=== PATIENT | female | born 1945 | race Caucasian/White ===

== ENCOUNTER 2016-10-13 15:09 | Emergency (ER) | payer MEDICARE, OTHER ==
[~2016-10-13] VITALS: Ht 167.6 cm; Wt 77.3 kg
[~2016-10-13 15:09] MED LIST: CYMBALTA 60MG60 MG; KLONOPIN 1MG1 MG; TRAVATAN Z 2.52.5 ML; TRUSOPT 5 ML5 ML; VITAMIN B121000 MC2; VITAMIN D5000 IU PO; ZITHROMAX Z PA250 MG PO
[2016-10-13 15:11] VITALS: BP 138/65; TEMP 98.3
[2016-10-13 16:15] LABS: PH 5 (5-8); SQUAMOUS EPITHELIAL 0-2 /hpf; URINE APPEARANCE Clear; URINE BACTERIA None Seen /hpf; URINE BILIRUBIN Negative (NEGATIVE); URINE BLOOD Negative (NEGATIVE); URINE COLOR Yellow; URINE GLUCOSE Negative (NEGATIVE); URINE KETONE Negative (NEGATIVE); URINE RBC None Seen /hpf; URINE UROBILINOGEN Negative (NEGATIVE); URINE WBC 0-2 /hpf
[2016-10-13] MEDS ORDERED: NORCO 325 MG-51 TAB PO (16:43)
[2016-10-13] MEDS ORDERED: FLEXERIL 1010 MG/TAB PO (16:45)
[2016-10-13] MEDS ORDERED: AMOXICILLIN 50500 MG PO (16:45)
[2016-10-13] MEDS ORDERED: CYMBALTA 60MG60 MG PO (16:45)
[2016-10-13] MEDS ORDERED: KLONOPIN 0.5MG0.5 MG PO (16:45)
[2016-10-13] MEDS ORDERED: PROTONIX 40MG T40 MG PO (16:45)
[2016-10-13] MEDS ORDERED: SYNTHROID 0.0.025 MG PO (16:45)
[2016-10-13] MEDS ORDERED: TENORMIN 2525 MG/TAB PO (16:45)
[2016-10-13 16:56] VITALS: PULSE 68
[2016-10-14] MEDS ORDERED: ZOFRAN 4MG T4 MG/TAB PO (20:46)
[2016-10-14] MEDS ORDERED: TRUSOPT OCUMETE10 ML (21:34)
[2016-10-14] MEDS ORDERED: XALATAN EYE DROPS OD (21:35)
== END 2016-10-13 16:57 | disposition home or self-care (01) ==
LOC: COL.ER 15:09
PROVIDERS: Emergency Medicine
DX: M54.16 Radiculopathy, lumbar region (principal); F32.9 Major depressive disorder, single episode, unspecified; F41.9 Anxiety disorder, unspecified

== ENCOUNTER 2016-10-14 19:59 | Emergency (ER) | payer MEDICARE, OTHER ==
[~2016-10-14] VITALS: Ht 167.6 cm; Wt 77.3 kg
[~2016-10-14 19:59] MED LIST changes: +AMOXICILLIN 50500 MG PO; +CYMBALTA 60MG60 MG PO; +FLEXERIL 1010 MG/TAB PO; +KLONOPIN 0.5MG0.5 MG PO; +NORCO 325 MG-51 TAB PO; +PROTONIX 40MG T40 MG PO; +SYNTHROID 0.0.025 MG PO; +TENORMIN 2525 MG/TAB PO
[2016-10-14 20:12] VITALS: TEMP 97.1
[2016-10-14] MEDS ORDERED: ZOFRAN 4MG T4 MG/TAB PO (20:46)
[2016-10-14 21:22] LABS: BASO % 0.5 % (0.0-2.0); EOS # 0.2 (0.0-0.7); EOS % 2.1 % (0-4.0); GRAN # 5.2 (1.4-6.5); GRAN % 69.8 % (42.2-75.2); HEMATOCRIT 43.4 % (37.0-47.0); HEMOGLOBIN 14.2 g/dl (12.5-16.0); LYMPH # 1.6 (1.2-3.4); LYMPH % 21.1 % (20.0-51.0); MEAN CELL VOLUME 90 fl (80.0-100.0); MEAN CORPUSCULAR HEMOGLOBIN 29 pg (27.0-31.0); MEAN CORPUSCULAR HGB CONC 33 g/dl (33.0-37.0); MEAN PLATELET VOLUME 10.4 fl (7.4-10.4); MONO # 0.5 (0.1-0.6); MONO % 6.2 % (1.7-9.3); PLATELET COUNT 183 K/mm3 (130-400); RED BLOOD COUNT 4.85 M/mm3 (4.10-5.30); REDCELL DISTRIBUTION WIDTH-CV 13.2 % (11.5-14.5); WHITE BLOOD COUNT 7.5 K/mm3 (4.8-10.8)
[2016-10-14] MEDS ORDERED: TRUSOPT OCUMETE10 ML (21:34)
[2016-10-14] MEDS ORDERED: XALATAN EYE DROPS OD (21:35)
[2016-10-14 21:39] LABS: ADJUSTED CALCIUM 9.3 mg/dL (8.4-10.2); ALBUMIN 4.2 gm/dL (3.5-5.0); BILIRUBIN,TOTAL 1.1 mg/dL (0.0-1.0); CALCIUM 9.5 mg/dL (8.4-10.2); CREATININE, serum 0.79 mg/dL (0.52-1.25); POTASSIUM 4.4 mmol/L (3.4-5.0); TOTAL PROTEIN 7.6 gm/dL (6.4-8.2)
[2016-10-14 22:25] VITALS: BP 149/74; PULSE 83
== END 2016-10-14 22:25 | disposition home or self-care (01) ==
LOC: COL.ER 19:59
PROVIDERS: Emergency Medicine
DX: R11.2 Nausea with vomiting, unspecified (principal); I10 Essential (primary) hypertension
CPT/HCPCS: C9113; J2405; J7030